=== PATIENT | female | born 1975 | race Caucasian/White ===

== ENCOUNTER 2019-06-13 09:04 | Inpatient (IN) | payer OTHER ==
[~2019-06-13] VITALS: Ht 165.1 cm; Wt 79.5 kg
[2019-06-13] VITALS (9 sets, daily range): BP systolic 93–116; BP diastolic 51–75
[2019-06-13] MEDS ORDERED: ONDANSETRON PF 4 MG/2 ML VIAL. IV PRN ×2 (09:30→12:30)
[2019-06-13] MEDS ORDERED: MORPHINE SULFATE 4 MG/ML VIAL. IV PRN (09:30)
[2019-06-13] MEDS: TAMSULOSIN 0.4 MG CAP.ER.24H. PO SCH ×2 (09:53→10:00)
[2019-06-13] MEDS: IV NORMAL SALINE 1000ML BAG 1,000 ML IV SCH ×2 (09:54→18:19)
--- NOTE | 2019-06-13 09:58 | PDOC2 ---
UROLOGY CONSULT Date of Consult Date of Consult DATE: 06/13/19 TIME: 09:57 Reason for Consult Reason for Consult: left ureter stone Identification/Chief Complaint Chief Complaint left flank pain Source Source: Chart review, Patient History of Present Illness Reason for Visit: 43 yo female presented to [facility] ER earlier today, reporting severe left flank pain that radiates to LLQ. Pain was associated with nausea, emesis. No fevers, chills. CT obtained, I reviewed the images, which shows 6 mm left proximal ureter stone adjacent to L3. The stone is visible on CT hr administrator image. Creatinine 1.2. She was then transferred to [facility]. Currently still having mild nausea, pain has improved. She had a previous kidney stone approx 17 years ago. She reports urinary frequency, no dysuria. UA with bacteria. She returned from [place] last week. 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 Past Medical History GI: Constipation Family History Family History: No Significant Social History No ALCOHOL: none Drugs: None Current Medications Current Medications Current Medications Morphine Sulfate (Morphine Sulfate) 4 mg PRN Q4HRS PRN IV PAIN; Start 06/13/19 at 09:30 Ondansetron HCl (Zofran) 4 mg PRN Q4HRS PRN IV NAUSEA/VOMITING; Start 06/13/19 at 09:30 Sodium Chloride 1,000 ml @ 100 mls/hr Q10H IV Last administered on 06/13/19at 09:54; Start 06/13/19 at 09:30 Tamsulosin HCl (Flomax) 0.4 mg DAILY PO Last administered on 06/13/19at 09:53; Start 06/13/19 at 10:00 Allergies Allergies: Coded Allergies: hydrocodone (Verified Allergy, Intermediate, Rash, 06/13/19) and dizziness,tolerates iv morphine ROS Review Of Systems: Except as noted in HPI: CONSTITUTIONAL: No fever or chills EYES: No recent changes SKIN: No rash or itching CARDIOVASCULAR: No chest pain, syncope, palpitations, or edema RESPIRATORY: No SOB or cough GASTROINTESTINAL: + nausea, vomiting NEUROLOGICAL: No headaches or weakness ENDOCRINE: No cold or heat intolerance GENITOURINARY: + frequency of urination MUSCULOSKELETAL: No back pain or joint pain LYMPHATICS: No enlarged lymph nodes PSYCHIATRIC: No anxiety or depression Physical Exam Physical Exam: General: Pleasant, no acute distress, well groomed Eyes: conjunctiva anicteric, eyes full range of motion ENT: moist oral mucosa, normal dentition Neck: Trachea midline, no masses Respiratory: unlabored breathing, not using accessory muscles, no crackles or wheezes Cardiovascular: Regular rate and rhythm, no peripheral edema Abdomen: nontender, nondistended, no hepatosplenomegaly, no masses Back: no CVA tenderness Skin: no rashes or skin lesions on visualized skin Psych: normal mood, affect. Alert and oriented x 3. Vitals VITALS Vital Signs Date Time Temp Pulse Resp B/P (MAP) Pulse Ox O2 Delivery O2 Flow Rate FiO2 06/13/19 09:39 Room Air Assessment/Plan Assessment/Plan Left proximal ureter with possible UTI. Discussed option of pain management + UTI treatment, then stone treatment after UTI treated. Also discussed option of ureteral stent placement today, then definitive stone management as outpatient ([facility]). Risks of procedure discussed including bleeding, infection, pain, need for additional procedures, anesthesia risk. She wants to proceed with ureteral stent placement - wants to try to get to work tomorrow. Should be ok for her to discharge later today after the procedure. Start Bactrim DS BID for UTI, continue for 7 days total. SOLEDAD CORREA MD Jun 13, 2019 09:58
[2019-06-13] MEDS ORDERED: IOHEXOL 300 MG/ML 50 ML VIAL. ONE (11:54)
[2019-06-13] MEDS ORDERED: DEXAMETHASONE SOD PHOS 4 MG/ML VIAL ONE (12:27)
[2019-06-13] MEDS ORDERED: ONDANSETRON PF 4 MG/2 ML VIAL. ONE (12:27)
[2019-06-13] MEDS ORDERED: PROPOFOL 20 ML IV ONE (12:27)
[2019-06-13] MEDS ORDERED: SEVOFLURANE 16 TO 30 MINUTES. IH ONE (12:27)
[2019-06-13] MEDS ORDERED: KETOROLAC 30 MG/ML INJ FOR OR. INJ ONE (12:27)
[2019-06-13] MEDS ORDERED: LIDOCAINE 2% PF 5 ML VIAL. ONE (12:27)
[2019-06-13] MEDS ORDERED: LIDOCAINE 1% PF 2 ML VIAL. ID PRN (12:30)
[2019-06-13] MEDS ORDERED: HYDROmorphone 2 MG/ML VIAL IV PRN (12:30)
[2019-06-13] MEDS ORDERED: fentaNYL PF VIAL 100 MCG/2 ML VIAL IV PRN ×2 (12:30)
[2019-06-13] MEDS ORDERED: PROCHLORPERAZINE 10 MG/2 ML VIAL. IV PRN (12:30)
[2019-06-13] MEDS ORDERED: IV RINGERS,LACTATED 1000ML 1,000 ML IV SCH (12:30)
[2019-06-13] MEDS ORDERED: MORPHINE SULFATE 2 MG/ML VIAL. IV PRN (12:30)
[2019-06-13] MEDS ORDERED: ePHEDrine PF IN SALINE 50 MG/10 ML SYRINGE. IV ONE (13:23)
--- NOTE | 2019-06-13 13:27 | PDOC4 ---
OPERATIVE NOTE Date: Date: Jun 13, 2019 Pre-Op Diagnosis: left ureter stone Post-Op Diagnosis: same Procedure Performed: cystoscopy, left ureter stent placement, left retrograde pyelogram Surgeon: Soledad Correa MD Anesthesia Type: general Blood Loss: 0 Specimans Obtained: none Findings: cloudy urine in bladder. left proximal ureter stone visible on flouroscopy. moderate left hydronephrosis Complications: none Operative Note: see dictation. ok for discharge from urology perspective. continue Bactrim x 7 days We will contact patient for followup. SOLEDAD CORREA MD Jun 13, 2019 13:27
[2019-06-13] MEDS ORDERED: OXYBUTYNIN CHLORIDE 5 MG TABLET PO PRN (13:30)
[2019-06-13] MEDS: SMZ/TMP 800/160MG TABLET. PO SCH ×2 (15:01→23:08)
--- NOTE | 2019-06-13 17:05 | OP ---
DATE OF SURGERY: 06/13/2019 SURGEON: Soledad Correa MD ORGANIC PREPARATION ANALYST: None. PREOPERATIVE DIAGNOSIS: Left ureter stone. POSTOPERATIVE DIAGNOSIS: Left ureter stone. PROCEDURE PERFORMED: Cystoscopy with left ureteral stent placement and left retrograde pyelogram. ANESTHESIA TYPE: General. DESCRIPTION OF PROCEDURE: This is a 43-year-old female admitted for a 6 mm proximal left ureter stone causing obstruction, as well as likely urinary tract infection. After discussion of risks, benefits and alternatives, she agreed to the above procedure. Informed consent was obtained. The patient was taken to the operating room where general anesthesia was induced. She was placed in dorsal lithotomy position, sterilely prepped and draped. A timeout was performed. A rigid cystoscope was advanced through the urethra and into the bladder. Within the bladder was cloudy urine, which was drained. The ureteral catheter was then placed into the left ureteral orifice and a gentle left retrograde pyelogram was performed, moderate left hydronephrosis was noted, and the stone in the proximal left ureter could also be visualized on fluoroscopy. A guidewire was passed into the left ureter. A 6 x 24 cm stent was then advanced over the wire and appropriate curl was noted in the renal pelvis and in the bladder. The bladder contents were emptied. The patient was awakened and taken to the recovery room in stable condition. BLOOD LOSS: None. COMPLICATIONS: None. SPECIMEN: None. SOLEDAD CORREA MD DR: HEIDI/nts JOB#: [id number] / [id number]
[2019-06-14 03:18] VITALS: BP 100/56
[2019-06-14] MEDS: IV NORMAL SALINE 1000ML BAG 1,000 ML IV SCH (04:14)
[2019-06-14 07:00] VITALS: BP 116/67
[2019-06-14 07:08] LABS: BASO % 0 % (0-3); EOS % 0 % (0-3); HEMATOCRIT 34.4 % (36.0-47.0); HEMOGLOBIN 11.7 g/dL (12.0-15.5); LYMPH # 0.9 x10^3/uL (1.0-4.8); LYMPH % 14 % (24-48); MEAN CORPUSCULAR HEMOGLOBIN 30 pg (25-35); MEAN CORPUSCULAR HGB CONC 34 g/dL (31-37); MEAN CORPUSCULAR VOLUME 88 fL (79-100); MONO # 0.4 x10^3/uL (0.0-1.1); MONO % 6 % (0-9); NEUT # 5.4 x10^3/uL (1.8-7.7); NEUT % 81 % (31-73); PLATELET COUNT 160 x10^3/uL (140-400); RED BLOOD COUNT 3.89 x10^6/uL (3.50-5.40); RED CELL DISTRIBUTION WIDTH 13.2 % (11.5-14.5); WHITE BLOOD COUNT 6.7 x10^3/uL (4.0-11.0)
[2019-06-14 07:28] LABS: ALBUMIN 2.6 g/dL (3.4-5.0); ALBUMIN/GLOBULIN RATIO 0.8 (1.0-1.7); CALCIUM 8.2 mg/dL (8.5-10.1); GFR 60.2; POTASSIUM 4.3 mmol/L (3.5-5.1); TOTAL BILIRUBIN 0.4 mg/dL (0.2-1.0); TOTAL PROTEIN 5.8 g/dL (6.4-8.2)
[2019-06-14] MEDS ORDERED: TRAM50TA PO (08:11)
[2019-06-14] MEDS ORDERED: SULF1TAB24 PO (08:11)
--- NOTE | 2019-06-14 08:42 | DS ---
DATE OF DISCHARGE: 06/14/2019 HOSPITAL COURSE: The patient is a 43-year-old female patient who was seen at the Emergency Room of [facility], was found to have a 6 mm obstructing left ureteral stone with hydronephrosis. She was transferred to [facility], was seen by Dr. Zuhair Mehta, the urologist and she underwent cystoscopy and left ureteral stent placement and left retrograde pyelography. Her urine was cloudy and therefore, it was sent for culture and sensitivity and was started empirically on Bactrim twice a day for 7 days. When I saw her this morning, she was sitting comfortably, eating her breakfast, in no apparent distress. On questioning her, denied any abdominal pain. Denied any chills, rigors, or fever. Denied nausea or vomiting. OBJECTIVE: VITAL SIGNS: Her heart rate was 89, blood pressure 100/56, temperature was 98.5, respiratory rate was 18 and oxygen saturation was 99%. The rest of clinical examination is stable, has not really changed. LABORATORY DATA: Labs as of this morning showed a serum sodium 142, potassium 4.3, chloride 109, bicarbonate 20, anion gap of 13, BUN 9, creatinine 1, estimated GFR was 60 mL per minute. Her glucose was 102, calcium was 8.2. Total bilirubin, AST, ALT, alkaline phosphatase were normal. Total protein was 5.8, albumin 2.6. Her white cell count was 6700, hemoglobin 12, hematocrit 34, MCV 88 and platelet count of 160,000. DISCHARGE MEDICATIONS: The patient was discharged home to continue on Bactrim-DS 1 tablet twice a day for 7 days. She was also given a prescription for tramadol 50 mg every 4 hours. ALLERGIES: SHE IS ALLERGIC TO HYDROCODONE. FINAL DISCHARGE DIAGNOSES: 1. Left ureteral stone with hydronephrosis. 2. Urinary tract infection. HERBIE CONSTANTINO MD DR: XENA/deandre JOB#: [id number] / [id number]
[2019-06-14] MEDS: TAMSULOSIN 0.4 MG CAP.ER.24H. PO SCH (09:00)
--- NOTE | 2019-06-14 09:11 | HP ---
ADMIT DATE: 06/13/2019 HISTORY OF PRESENT ILLNESS: The patient is a 43-year-old female patient who presented to the Emergency Room of [facility] complaining of pain on her left flank and back area that feels like her kidney stones pain and she apparently had a total of 2 stones before that she passed spontaneously, it has been a long time ago. She apparently was on a vacation at [facility] [place] [facility]. She apparently has 2 prior kidney stones that she passed spontaneously. She does feel that she is hydrated and she was in [place], [place], but denies any intake or bad food. She denied any dysuria. She is complaining of severe nausea, but no history of trauma, no history of immunosuppression or specific ill contact. She was evaluated in the Emergency Room and has had lab work, which was essentially unremarkable. Her urinalysis showed that there is large amount of blood and her tox screen was positive for opiates. Her CT scan of the abdomen and pelvis showed that she has 4 mm calculus identified along the proximal left ureter at the level of the left L3 transverse process finding likely corresponds with calculus identified in the CT scan, no acute cardiopulmonary process and therefore, she was transferred to [facility] to consult the urologist as she has left-sided hydronephrosis with perinephric edema and proximal hydroureter 5-6 mm left proximal ureteral stone. PAST MEDICAL HISTORY: Significant for 2 episodes of renal calculi that she passed atraumatically spontaneously. She has also had chronic constipation. PAST SURGICAL HISTORY: Significant also for constipation. FAMILY HISTORY: Unremarkable. SOCIAL HISTORY: She is . She does not smoke, drink alcohol or use any recreational drugs. She is a teacher. She has 3 children, 2 of them have celiac disease and her sister also has one child with celiac disease. ALLERGIES: She is allergic to HYDROCODONE. PHYSICAL EXAMINATION: GENERAL: On examining her, the patient looked well and was clearly in no apparent respiratory distress. No pallor, jaundice, cyanosis or thyromegaly. No jugular venous distention. No limb edema. VITAL SIGNS: Her heart rate was 72, blood pressure was 93/51, temperature was 97.8, respiratory rate was 16, and oxygen saturation was 99%. HEAD, EYES, EARS, NOSE, AND THROAT: Normocephalic, atraumatic. NECK: Supple. HEART: Showed normal first and second heart sounds with no gallop, rub or murmur. CHEST: Clear to auscultation. No crepitation or rhonchi. ABDOMEN: Distended, soft, nontender. No guarding or rigidity. No organomegaly. All hernial orifice intact. Bowel sounds normal. She has no CVA tenderness. SKIN: Warm. No evidence of any rashes or lesions. LABORATORY DATA: While in the Emergency Room, she has had lab work, which showed a white cell count 6700, hemoglobin 11.7, hematocrit 34.4, MCV 88 and platelet count of 160,000. Her chemistry showed serum sodium of 142, potassium 4.3, chloride 104, bicarbonate 24, anion gap of 11, BUN 13, creatinine 1.2, estimated GFR was 48 mL per minute. Her glucose 119, calcium was 9.1. Total bilirubin, AST, ALT, alkaline phosphatase were normal. Total protein was 6.7, albumin 3.6 and lipase was 128. Her serum test was negative. White cell count was 5300, hemoglobin 12.8, hematocrit 38, MCV 89 and platelet count of 199,000. Her prothrombin time, INR and aPTT were all normal. Urinalysis showed the urine was yellow, hazy with a pH of 5, specific gravity of 1.030. There was a trace of protein, negative for glucose and ketones, large amount of blood, negative for nitrite and bilirubin, negative for leukocyte esterase or more than 40 rbc's, 1-4 wbc's, very few bacteria. Tox screen was positive for opiates. Her imaging studies showed acute abdomen, series showed that the patient has 4 mm calculus identified along with the proximal left ureter at the level of the left L3 transverse process. No other acute cardiopulmonary process, nonobstructive bowel gas pattern. CT scan of the abdomen and pelvis showed that the abdominal aorta is not aneurysmal in the intrahepatic bile duct dilatation. Limited evaluation of the pancreas secondary to lack of contrast. Spleen is unremarkable. Left-sided hydronephrosis with perinephric edema and proximal hydroureter 5-6 mm left proximal ureteral stone, nonobstructive right renal stone without hydronephrosis, suspected low density lesion along the right renal cortex, which may be cystic in nature, but limited evaluation on noncontrast imaging. ASSESSMENT AND PLAN: The patient was transferred to [facility] and was treated with IV pain medication, IV fluid and to consult the Urology team. HERBIE CONSTANTINO MD DR: XENA/deandre JOB#: [id number] / [id number]
--- NOTE | 2019-06-14 09:34 | PDOC ---
JACK HAN DRUM DRIER OPERATOR 06/14/19 0934: SUBJECTIVE Subjective Patient feeling well this am and would like to go home. No fevers, bad episodes of pain overnight. Urine is red but resembles koolade or Gatorade. OBJECTIVE Objective Physical Exam: General appearance: Alert and Oriented Head: Normocephalic, without obvious abnormality Eyes: conjunctivae/corneas clear. PERRL, EOM's intact. Fundi benign Back: no CVA pain on testing bilaterally Lungs: Regular respirations, non labored breathing Abdomen: soft, non-tender. No masses, no organomegaly Vital Signs Vital Signs Date Time Temp Pulse Resp B/P (MAP) Pulse Ox O2 Delivery O2 Flow Rate FiO2 06/14/19 07:00 98.5 55 16 116/67 (83) 99 Room Air 98.5 06/14/19 03:18 98.5 89 18 100/56 (71) 99 Room Air 98.5 06/13/19 23:00 98.3 84 18 112/59 (76) 96 Room Air 98.3 06/13/19 20:00 Room Air 06/13/19 19:00 98.7 94 20 106/56 (73) 96 Room Air 98.7 06/13/19 16:00 90 104/60 (75) 06/13/19 15:30 71 105/64 (78) 06/13/19 15:15 72 116/67 (83) 06/13/19 15:00 75 115/67 (83) 06/13/19 14:45 69 106/75 (85) 06/13/19 14:30 97.9 71 16 112/64 (80) 98 Room Air 97.9 06/13/19 14:18 98.1 62 12 101/60 96 Room Air 98.1 06/13/19 14:00 98.1 69 17 105/59 96 Room Air 98.1 06/13/19 13:45 98.1 70 18 96/52 97 Room Air 98.1 06/13/19 13:32 98.1 69 18 96/51 98 Simple Mask 8 98.1 06/13/19 13:32 Mask 8 06/13/19 12:34 97.8 58 21 99/60 97 Room Air 97.8 06/13/19 09:39 Room Air I & O Intake and Output 06/14/19 06:59 Intake Total 240 ml Output Total 2950 ml Balance -2710 ml Intake Oral 240 ml Output Urine Total 2950 ml # Voids 1 PHYSICAL EXAM Physical Exam Physical Exam: General appearance: Alert and Oriented Head: Normocephalic, without obvious abnormality Eyes: conjunctivae/corneas clear. PERRL, EOM's intact. Fundi benign Back: no CVA pain on testing bilaterally Lungs: Regular respirations, non labored breathing Abdomen: soft, non-tender. No masses, no organomegaly ASSESSMENT/PLAN Assessment/Plan Discussed with patient that it is OK to have red tinged urine with small clots as long as it resembles red Koolade or Gatorade Please call for very dark ( wine colored) urine or urine with large clots. Please also call for fever grea ter than 100. Annmarie(surgery consultant for [facility]) will call patient to schedule follow up ESWL surgery within the next 2-4 days. Please call [facility] and ask for Annmarie if you receive no communication by this time. [facility] with [facility] and [place] for malaria concerns-pt was afebrile while in house, so we do not have acute concerns for this. All questions answered. Ok for patient to D/C home, D/C with pain medication. Dr. Ron will do discharge. Problems: (1) Left ureteral stone (2) Urinary tract infection (3) Hydronephrosis with renal and ureteral calculous obstruction COMMENT Lab Laboratory Tests Test 06/14/19 05:40 White Blood Count 6.7 x10^3/uL (4.0-11.0) Red Blood Count 3.89 x10^6/uL (3.50-5.40) Hemoglobin 11.7 g/dL (12.0-15.5) Hematocrit 34.4 % (36.0-47.0) Mean Corpuscular Volume 88 fL (79-100) Mean Corpuscular Hemoglobin 30 pg (25-35) Mean Corpuscular Hemoglobin Concent 34 g/dL (31-37) Red Cell Distribution Width 13.2 % (11.5-14.5) Platelet Count 160 x10^3/uL (140-400) Neutrophils (%) (Auto) 81 % (31-73) Lymphocytes (%) (Auto) 14 % (24-48) Monocytes (%) (Auto) 6 % (0-9) Eosinophils (%) (Auto) 0 % (0-3) Basophils (%) (Auto) 0 % (0-3) Neutrophils # (Auto) 5.4 x10^3/uL (1.8-7.7) Lymphocytes # (Auto) 0.9 x10^3/uL (1.0-4.8) Monocytes # (Auto) 0.4 x10^3/uL (0.0-1.1) Eosinophils # (Auto) 0.0 x10^3/uL (0.0-0.7) Basophils # (Auto) 0.0 x10^3/uL (0.0-0.2) Sodium Level 142 mmol/L (136-145) Potassium Level 4.3 mmol/L (3.5-5.1) Chloride Level 109 mmol/L (98-107) Carbon Dioxide Level 20 mmol/L (21-32) Anion Gap 13 (6-14) Blood Urea Nitrogen 9 mg/dL (7-20) Creatinine 1.0 mg/dL (0.6-1.0) Estimated GFR (Cockcroft-Gault) 60.2 BUN/Creatinine Ratio 9 (6-20) Glucose Level 102 mg/dL (70-99) Calcium Level 8.2 mg/dL (8.5-10.1) Total Bilirubin 0.4 mg/dL (0.2-1.0) Aspartate Amino Transf (AST/SGOT) 13 U/L (15-37) Alanine Aminotransferase (ALT/SGPT) 18 U/L (14-59) Alkaline Phosphatase 74 U/L (46-116) Total Protein 5.8 g/dL (6.4-8.2) Albumin 2.6 g/dL (3.4-5.0) Albumin/Globulin Ratio 0.8 (1.0-1.7) SOLEDAD CORREA MD 06/16/19 1308: ASSESSMENT/PLAN Assessment/Plan Agree with assessment and plan. JACK HAN APRN Jun 14, 2019 09:34 SOLEDAD CORREA MD Jun 16, 2019 13:08
[2019-06-14] MEDS: SMZ/TMP 800/160MG TABLET. PO SCH (09:55)
--- NOTE | 2019-06-14 10:31 | NUR ---
Discharge Note: CARINE SUAZO Discharge instructions and discharge home medications reviewed with Patient and a copy given. All questions have been answered and understanding verbalized. The following instructions and handouts were given: Kidney stones Discontinued lines and drains: Peripheral IV intact. Patient discharged to Home or Self Care with Family Member via Ambulated
== END 2019-06-14 10:33 | disposition home or self-care (01) | DRG 661 ==
LOC: 5 NORTH 09:04
PROVIDERS: ADMIT Internal Medicine; ATTEND Internal Medicine
PROC: BT1F1ZZ Fluoroscopy of Left Kidney, Ureter and Bladder using Low Osmolar Contrast (ICD-10-PCS; 2019-06-13)
PROC: 0T778DZ Dilation of Left Ureter with Intraluminal Device, Via Natural or Artificial Opening Endoscopic (ICD-10-PCS; principal; 2019-06-13 12:00)
DX: N13.6 Pyonephrosis (principal); K59.09 Other constipation; Z87.442 Personal history of urinary calculi; Z88.5 Allergy status to narcotic agent
CPT/HCPCS: 36415; 76000; 80053; 85025; A7015; C1769; C2617; J0171; J1100; J1885; J2001; J2405; J2704; J7030; Q9967